=== PATIENT | female | born 1955 | race Caucasian/White ===

== ENCOUNTER 2023-08-31 11:00 | Outpatient (RCR) | payer OTHER, SELFPAY | END 2024-06-08 08:40 | disposition home or self-care (01) | LOC: HO.OT 11:00 | PROVIDERS: PCP Nurse Practitioner Gerontology; Visit Provider Physician Assistant | DX: M79.642 Pain in left hand (principal) | CPT/HCPCS: 29130; 97110; 97140; 97165; 97535 ==